=== PATIENT | female | born 1995 | race Two or more races ===

== ENCOUNTER 2022-09-11 16:29 | Emergency (ER) | payer OTHER ==
[~2022-09-11] VITALS: Ht 165.1 cm; Wt 58.1 kg
== END 2022-09-11 20:13 | disposition home or self-care (01) ==
LOC: ER 16:29
DX: L03.115 Cellulitis of right lower limb (principal)

== ENCOUNTER 2023-01-01 17:54 | Emergency (ER) | payer OTHER ==
[~2023-01-01] VITALS: Ht 167.6 cm; Wt 70.3 kg
[2023-01-01] MEDS ORDERED: HUMIRA40 MG/0.2 SQ (18:17)
[2023-01-01] MEDS ORDERED: METOTREXATO (18:18)
== END 2023-01-02 00:29 | disposition home or self-care (01) ==
LOC: ER 17:54
DX: K52.89 Other specified noninfective gastroenteritis and colitis (principal); R11.10 Vomiting, unspecified; E86.0 Dehydration; Z20.822 Contact with and (suspected) exposure to COVID-19